=== PATIENT | male | born 1970 | race Caucasian/White ===

== ENCOUNTER 2019-01-04 07:37 | Emergency (ER) | payer OTHER ==
[~2019-01-04] VITALS: Ht 172.7 cm; Wt 84.8 kg
[2019-01-04 08:11] LABS: URINE BILIRUBIN NEGATIVE (Negative); URINE BLOOD 1+ (Negative); URINE CLARITY CLEAR; URINE COLOR YELLOW; URINE GLUCOSE-RANDOM NEGATIVE (Negative); URINE KETONES NEGATIVE (Negative); URINE LEUKOCYTES-REFLEX NEGATIVE (Negative); URINE NITRITE-REFLEX NEGATIVE (Negative); URINE PROTEIN NEGATIVE (Negative); URINE SPECIFIC GRAVITY 1.025 (1.005-1.030); URINE UROBILINOGEN 0.2 E.U./dl (0.2-1.0)
[2019-01-04 08:21] LABS: BACTERIA-REFLEX 1-9 Few /HPF (None Seen); CASTS None Seen /LPF (None Seen); CRYSTALS None Seen /LPF (None Seen); MUCUS 4-6 Moderate strn/LPF (None Seen); SQUAMOUS 0-3 Few /LPF (0-3); URINE RBC 3-10 Few /HPF (0-2); URINE WBC-REFLEX 0-5 Rare /HPF (0-5)
[2019-01-04 08:30] LABS: ABSOLUTE EOSINOPHILS 0.1 thou/uL (0.0-0.7); ABSOLUTE LYMPHOCYTES 2.3 thou/uL (0.8-5.3); ABSOLUTE MONOCYTES 0.5 thou/uL (0.0-1.2); ABSOLUTE NEUTROPHILS 4.2 thou/uL (1.6-8.1); BASOPHILS 0.3 %; EOSINOPHILS 1.2 %; HEMATOCRIT 46.5 % (42.0-52.0); HEMOGLOBIN 15.8 gm/dL (14.0-18.0); LYMPHOCYTES 32.7 %; MCH 30.8 pg (26.0-34.0); MCV 90.6 fL (80.0-100.0); MONOCYTES 6.4 %; NUCLEATED RBCS 0 /100WBC; PLATELET COUNT* 223 thou/uL (150-400); POLYS 59.4 %; RBC 5.13 mil/uL (4.50-6.00); RDW-CV 13.5 % (10.5-14.5); WBC 7.1 thou/uL (4.0-11.0)
[2019-01-04 08:40] LABS: CALCIUM 9.8 mg/dL (8.5-10.1); CREATININE 1.3 mg/dL (0.6-1.3); POTASSIUM 3.6 mmol/L (3.5-5.1)
[2019-01-04 08:44] LABS: ALBUMIN 4.1 g/dL (3.4-5.0); TOTAL BILIRUBIN 0.4 mg/dL (<0.1-1.0); TOTAL PROTEIN 7.6 g/dL (6.4-8.2)
[2019-01-04] MEDS ORDERED: ZOFRAN ODT4 MG DISSOLVE (09:55)
[2019-01-04] MEDS ORDERED: FLOMAX0.4 MG PO (09:55)
[2019-01-04] MEDS ORDERED: NORCO 5-325 TA1 EAC1 PO (09:55)
[2019-01-04] MEDS ORDERED: IBUPROFEN 800800 M1 PO (09:55)
[2019-01-04] MEDS ORDERED: KEFLEX500 M1 PO (09:55)
[2019-01-04 10:15] VITALS: BP 109/61
== END 2019-01-04 10:17 | disposition home or self-care (01) ==
LOC: M.ERS 07:37
PROVIDERS: Emergency Medicine Emergency Medical Services
DX: N20.0 Calculus of kidney (principal)